=== PATIENT | female | born 1955 | race Caucasian/White ===

== ENCOUNTER 2019-10-12 14:50 | Emergency (ER) | payer MEDICARE, OTHER ==
[~2019-10-12] VITALS: Ht 160 cm; Wt 69.0 kg
[2019-10-12] MEDS ORDERED: "\\\"STATIN\\\"" (15:05)
[2019-10-12] MEDS ORDERED: [UNRECOGNIZED DRUG - REMARK] (15:05)
[2019-10-12] MEDS ORDERED: [UNRECOGNIZED DRUG - REMARK] (15:05)
[2019-10-12 15:21] LABS: URINE BLOOD TRACE (Negative); URINE CLARITY CLEAR; URINE COLOR YELLOW; URINE GLUCOSE-RANDOM NEGATIVE (Negative); URINE KETONES 2+ (Negative); URINE LEUKOCYTES-REFLEX NEGATIVE (Negative); URINE NITRITE-REFLEX NEGATIVE (Negative); URINE PROTEIN NEGATIVE (Negative); URINE SPECIFIC GRAVITY 1.025 (1.005-1.030); URINE UROBILINOGEN 0.2 E.U./dl (0.2-1.0)
[2019-10-12 15:32] LABS: CREATININE 0.9 mg/dL (0.6-1.3); POTASSIUM 3.9 mmol/L (3.5-5.1)
[2019-10-12 15:37] LABS: ALBUMIN 4.4 g/dL (3.4-5.0); TOTAL BILIRUBIN 1.2 mg/dL (<0.1-1.0)
[2019-10-12 15:38] LABS: ABSOLUTE BASOPHILS 0.1 thou/uL (0.0-0.2); ABSOLUTE EOSINOPHILS 0.1 thou/uL (0.0-0.7); ABSOLUTE LYMPHOCYTES 1.7 thou/uL (0.8-5.3); ABSOLUTE MONOCYTES 0.5 thou/uL (0.0-1.2); ABSOLUTE NEUTROPHILS 3.8 thou/uL (1.6-8.1); BASOPHILS 1.1 %; EOSINOPHILS 1.2 %; HEMATOCRIT 45.8 % (37.0-47.0); HEMOGLOBIN 16.1 gm/dL (12.0-15.0); MCH 32.2 pg (26.0-34.0); MCHC 35.1 g/dL (28.0-37.0); MCV 91.8 fL (80.0-100.0); MONOCYTES 7.6 %; MPV 8.3 fl. (7.2-11.1); NUCLEATED RBCS 0 /100WBC; PLATELET COUNT* 260 thou/uL (150-400); POLYS 62.1 %; RBC 4.99 mil/uL (4.20-5.00); RDW-CV 13.2 % (10.5-14.5)
[2019-10-12 15:43] LABS: ICTOTEST (BILI CONFIRMATORY) Negative (Negative); URINE BILIRUBIN 2+ (Negative)
[2019-10-12] MEDS ORDERED: MOBIC7.5 MG PO (18:48)
[2019-10-12] MEDS ORDERED: FLEXERIL PO (18:48)
[2019-10-12 19:08] VITALS: BP 144/78
--- NOTE | 2019-10-13 12:53 | EKG ---
[place] [address] ELECTROCARDIOGRAM REPORT Name: Phil SHELTON [id number] Admission: 10/12/19 Attend Phys: Discharge: 10/12/19 Date of : 51 Date of Service: 10/12/19 1540 Report #: [id number] THIS REPORT FOR: //name// [facility] ED Test Date: 2019-10-12 Test Time: 15:40:59 Pat Name: Phil SHELTON Department: Room: Gender: Roustabout Crew: EVI : 1955 Requested By: Diana Adkins Order Number: [id number] MD: Bhanu Bradshaw Measurements Intervals [place] Rate: 85 P: 67 OR: 114 QRS: 20 QRSD: 84 T: 43 QT: 334 QTc: 398 Interpretive Statements Sinus rhythm Borderline short OR interval No previous ECG available for comparison Electronically Signed On 10-13-2019 12:52:35 [employer] by Bhanu Bradshaw [email or web address] <ELECTRONICALLY SIGNED> By: Bhanu Bradshaw MD, [facility] 10/13/19 1252 D: 020 39 Bhanu Bradshaw MD, FACC /EPI
== END 2019-10-12 19:22 | disposition home or self-care (01) ==
LOC: M.ERS 14:50
PROVIDERS: Physician Assistant
DX: N83.291 Other ovarian cyst, right side (principal); Z88.0 Allergy status to penicillin